=== PATIENT | male | born 1955 | race Caucasian/White ===

== ENCOUNTER 2020-02-28 09:36 | Observation (INO) | payer MEDICARE ==
[2020-02-28] MEDS ORDERED: Morphine 4 MG/ML VIAL ONE ×3 (10:10→14:55)
[2020-02-28] MEDS ORDERED: Ondansetron PF 4 MG/2 ML Vial ONE ×2 (11:22→15:41)
--- NOTE | 2020-02-28 11:31 | RAD ---
Exam: XR Ankle Lt 2 View HISTORY: Trauma left lower extremity. Fractures. COMPARISON: Views of the left tibia and fibula. FINDINGS: Incomplete visualization of fractures involving the middle one third diaphysis of the tibia and fibula are seen. Fracture involving the medial malleolus extending into the tibiotalar joint is also again seen and noted on prior views of the tibia and fibula. No dislocation is seen at the le tyrese of the ankle. No additional fracture is seen. Splint material overlies the lower extremity. IMPRESSION: Mildly and displaced fractures involving the diaphysis of the left tibia and fibula as well as a nondisplaced fracture involving the medial malleolus with the fracture extending medially into the tibiotalar joint.
--- NOTE | 2020-02-28 11:32 | RAD ---
EXAM: CHEST ONE VIEW HISTORY: Preoperative evaluation. COMPARISON: None FINDINGS: Postoperative changes related to CABG are noted. Cardiac silhouette and pulmonary vasculature are wit hin normal limits for the portable technique of the study. The lungs are clear. Vascular calcifications are seen in the thoracic aorta. Osseous structures have a normal appearance. IMPRESSION: No acute cardiopulmonary process.
[2020-02-28 11:37] LABS: Hemoglobin 14.8 g/dL (14.0-18.0); Mean Corpuscular HGB CONC 33.1 g/dL (32.0-36.0); Mean Corpuscular Hemoglobin 35.8 pg (27.0-31.0); Mean Platelet Volume 8.3 fL (7.4-10.4); Platelet Count 213 thou/uL (130-400); RBC Distribution Width 11.5 % (11.5-14.5); Red Blood Cell (RBC) Count 4.14 mill/uL (4.70-6.10); White Blood Cell (WBC) Count 11.3 thou/uL (4.8-10.8)
[2020-02-28 11:43] LABS: PTT 30.5 sec (22.9-36.1); Prothrombin Time 12.7 sec (12.0-14.7)
--- NOTE | 2020-02-28 11:43 | RAD ---
LEFT LEG 2 VIEWS: Date: 02/28/2020 HISTORY: Fall, left leg pain. FINDINGS/IMPRESSION: There are mildly displaced fractures of the distal shafts of the left tibia and fibula, and nondispla geraldine fractures of the proximal shafts of the tibia and fibula, and a nondisplaced fracture involving t he medial malleolus. POS: OFF
[2020-02-28 11:50] LABS: #Eosinphils 0.1 thou/uL (0.0-0.7); #Lymphocytes 0.9 thou/uL (1.20-3.40); #Monocytes 0.4 thou/uL (0.11-0.59); #Neutrophils 9.9 thou/uL (1.40-6.50); %Basophils 0.1 % (0.0-1.0); %Eosinophils 0.8 % (0.0-10.0); %Lymphocytes 8.2 % (21.0-51.0); %Monocytes 3.6 % (0.0-10.0); %Neutrophils 87.4 % (42.0-75.0); Large Platelets SLIGHT; MDiff Complete? YES; Macrocytosis MODERATE=16-30 cells (100X) (0-5/hpf); Platelet Morphology Comment Appears Adequate
[2020-02-28 11:52] LABS: ALT (SGPT) 25 U/L (8-55); AST (SGOT) 22 U/L (5-34); Albumin 4.4 g/dL (3.4-4.8); Alkaline Phosphatase 65 U/L (40-110); Anion Gap 11 mmol/L (10-20); BUN (Urea Nitrogen) 20 mg/dL (8.4-25.7); Bilirubin, Total 0.5 mg/dL (0.2-1.2); Calc. Creatinine Clearance 0 mL/min (70-130); Calcium 9.1 mg/dL (7.8-10.44); Carbon Dioxide 25 mmol/L (23-31); Chloride 107 mmol/L (98-107); Estimated GFR-MDRD 72; Globulin 2.6 g/dL (2.4-3.5); Glucose 133 mg/dL (80-115); Potassium 4.1 mmol/L (3.5-5.1); Sodium 139 mmol/L (136-145)
[2020-02-28] MEDS ORDERED: Fentanyl 250 MCG/5 ML VIAL ONE (12:04)
[2020-02-28] MEDS ORDERED: Midazolam HCl 2 mg/2 ml Vial ONE (12:04)
--- NOTE | 2020-02-28 12:44 | HP ---
REQUESTING PHYSICIAN: Josh Benites MD ATTENDING SURGEON: Johs Hwang MD CONSULTATIONS: Orthopedics, Dr. Guallpa. HISTORY OF PRESENT ILLNESS: The patient is a 64-year-old man, who was working with his tractor that had a log on the forks that he was attempting to cut. Unfortunately, the tension on the log once it was cut, caused the snapped forward and struck the patient. In his left lower extremity, he had immediate pain and deformity, but was able to summon help and was brought to the emergency department by ground EMS. In the emergency department, he underwent evaluation and examination and was noted to have a comminuted closed tibial and fibular fracture. The patient denied any loss of consciousness. We were asked to evaluate the patient for admission and obtain Orthopedic consultation. ALLERGIES: NONE. CURRENT MEDICATIONS: 1. 81 mg aspirin. 2. Atorvastatin. 3. . 4. Plavix. 5. Ezetimibe. 6. CoQ10. 7. Acyclovir. PAST MEDICAL HISTORY: Myocardial infarction. PAST SURGICAL HISTORY: Four-vessel coronary artery bypass graft. SOCIAL HISTORY: The patient smoked tobacco greater than 20 years ago. Denies drug use. Drinks 2 beers every day. He lives at home with his spouse. REVIEW OF SYSTEMS: Ten-point review of systems is negative as otherwise stated. PHYSICAL EXAMINATION: VITAL SIGNS: Blood pressure 125/71, heart rate 61, respirations 15, oxygen saturation 98% on room air, and temperature 97.9. GENERAL: The patient is resting comfortably in bed. He is awake, alert, and oriented x3. [place] Coma Scale is 15. HEENT: Head is normocephalic and atraumatic. Eyes, extraocular motion intact. PERRLA bilaterally. Ears are atraumatic without discharge. Nose is atraumatic without discharge. Oropharynx is clear. NECK: Nontender. Trachea is midline with no JVD. CHEST: Clear to auscultation with good inspiratory and expiratory effort. HEART: Regular rate and rhythm. ABDOMEN: Soft, flat, nontender with active bowel sounds. PELVIS: Stable. EXTREMITIES: Neurovascularly intact x4. Left lower extremity is immobilized in a long posterior splint. The available compartments are soft, and the patient is able to move his digits without discomfort showing no signs of compartment syndrome. BACK: Atraumatic and nontender. LABORATORY FINDINGS: White blood cell count 11.3, hemoglobin 14.8, hematocrit 44.7. INR 1.0. Chemistries are pending. RADIOGRAPHIC FINDINGS: AP chest shows no acute cardiopulmonary process. Views of the left tibia and fibula showed mildly displaced fractures of the distal shaft of the left tibia and fibula and there are nondisplaced fractures of proximal shaft of the tibia and fibula. In addition, there is a nondisplaced fracture involving the medial malleolus. Views of the left ankle demonstrates the above fractures. ASSESSMENT: 1. Status post blunt trauma to left lower extremity. 2. Comminuted fractures of the left tibia and fibula. 3. Acute pain secondary to above. 4. History of coronary artery disease with 4-vessel coronary artery bypass graft. PLAN: Plan will be to keep the patient n.p.o. His last meal was 0700 hours this morning. This was discussed with Dr. Guallpa in addition to his Plavix use. The plan is for him to go to the operating room this afternoon. We will do pain control, pulmonary toilet, gastritis, mechanical VTE prophylaxis. Postoperatively, we will resume his diet, transition him to oral pain medications and begin working with physical and occupational therapy. Due to the patient's health and mobility, he will likely be able to be discharged home tomorrow. The evaluation, examination, laboratory, and radiographic findings were discussed with Dr. Hwang prior to this dictation. Job ID: [id number]
[2020-02-28] MEDS ORDERED: CEFAZOLIN 2 GM in Premix Bag 1 BAG IVPB SCH (12:45)
[2020-02-28] MEDS ORDERED: PACU-Morphine 4MG/ML VIAL SLOW IVP PRN (14:42)
[2020-02-28] MEDS ORDERED: Promethazine HCl 25 MG/ML VIAL SLOW IVP PRN (14:42)
[2020-02-28] MEDS ORDERED: Promethazine HCl 25 MG/ML VIAL IM PRN (14:42)
[2020-02-28] MEDS ORDERED: Ondansetron HCl/PF 4 MG/2 ML Vial IVP PRN (14:42)
[2020-02-28] MEDS ORDERED: HYDROmorphone 2 MG/ML VIAL SLOW IVP PRN (14:42)
[2020-02-28] MEDS ORDERED: hydrALAZINE 20 MG/ML VIAL SLOW IVP PRN (14:49)
[2020-02-28] MEDS ORDERED: Cyclobenzaprine 10 MG TAB PO PRN (14:49)
[2020-02-28] MEDS ORDERED: traMADol HCl 50 MG TAB PO PRN (14:49)
[2020-02-28] MEDS ORDERED: Dextrose 5% in Water 1,000 ML IV PRN (14:49)
[2020-02-28] MEDS ORDERED: Morphine 2 MG/ML SYRINGE SLOW IVP PRN (14:49)
[2020-02-28] MEDS ORDERED: Ondansetron PF 4 MG/2 ML Vial IVP PRN (14:49)
[2020-02-28] MEDS ORDERED: Ondansetron ODT 4 MG TAB PO PRN (14:49)
[2020-02-28] MEDS ORDERED: Dextrose 50% Abboject 50 ML SYRINGE SLOW IVP PRN (14:49)
[2020-02-28] MEDS ORDERED: Sodium Chloride 0.9% 1,000 ML IV SCH (14:49)
[2020-02-28] MEDS ORDERED: Morphine 4 MG/ML VIAL SLOW IVP PRN (14:49)
--- NOTE | 2020-02-28 15:05 | RAD ---
LEFT LEG TWO VIEWS: History: Intraoperative images FINDINGS: There has been reduction and internal fixation of the fracture of the tibial shaft and the medial mal leolus with placement of an intramedullary james and interlocking screw and two screws through the medi al malleolus since the previous exam of 9:51 a.m. of the same date. IMPRESSION: As above. POS: OFF
--- NOTE | 2020-02-28 15:17 | OP ---
DATE OF PROCEDURE: 02/28/2020 OPERATION PERFORMED: 1. Open reduction and internal fixation of left medial malleolus fracture. 2. Intramedullary nail fixation of left segmental tibia fracture. PREOPERATIVE DIAGNOSES: 1. Left segmental tibia fracture. 2. Left medial malleolus fracture. POSTOPERATIVE DIAGNOSES: 1. Left segmental tibia fracture. 2. Left medial malleolus fracture. COMPLICATIONS: None. ESTIMATED BLOOD LOSS: 200 mL. HIGHBALLER: Jermaine Sofia PA-C. IMPLANTS: Synthes 360-mm tibial nail with Crosslock screws and 4.0 cancellous screws. INDICATIONS: Mr. Ryder is a 64-year-old male who was injured cutting a tree today. He fractured his tibia and fibula. He was indicated for the above procedures to restore anatomic alignment and promote healing. Risks have been reviewed in detail. He elected to proceed with the operation. DESCRIPTION OF PROCEDURE: Mr. Ryder was identified in the preoperative holding area. His correct extremity was marked. He was carried to the operating room. He was positioned supine. General anesthesia was induced. A multidisciplinary time-out was performed. The left lower extremity was prepped and draped in sterile fashion. We began the procedure with a small incision over the medial malleolus. We percutaneously placed 2 partially-threaded 4.0 screws across the medial malleolar fracture. This compressed the fracture and held the fracture in appropriate position. The screws were seated under intraoperative x-ray. At this point, we moved to the tibia. We made a small incision over the proximal knee. We dissected down through the subcutaneous tissues and made a medial parapatellar arthrotomy. At this point, we inserted a guidewire at the tibial plateau. We inserted the guidewire under intraoperative x-ray. Next, we over-reamed the guidewire. We then placed our ball-tipped guidewire in the canal across the fracture site. We seated this in the centered position of the ankle. Next, we proceeded to ream over the guidewire. We reamed up to a size 10. We then placed a 9-mm tibial nail. We placed 2 proximal Crosslock screws and 2 distal Crosslock screws. At this point, we took final x-ray images. We thoroughly irrigated with copious lavage. After wounds were closed, we placed a splint. The patient was taken to recovery room in good condition. Job ID: [id number]
--- NOTE | 2020-02-28 15:20 | CON ---
DATE OF CONSULTATION: 02/28/2020 CHIEF COMPLAINT: Left tibia and leg pain. HISTORY OF PRESENT ILLNESS: Mr. 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 He was using a chain saw, cutting down, falling trees. One tree must have been under tension. As he cut this, it snapped and struck his left leg. He had immediate pain. He was unable to ambulate. He was taken to the emergency department. X-rays determined a left segmental tibia fracture as well as ankle fracture. He has been splinted. He has been given pain medication. He is resting comfortably. PAST MEDICAL HISTORY: Coronary artery disease. PAST SURGICAL HISTORY: Coronary artery bypass graft 2 years ago, on Plavix. ALLERGIES: NO KNOWN DRUG ALLERGIES. REVIEW OF SYSTEMS: Positive for left leg pain. Otherwise, negative 10-point review of systems. FAMILY MEDICAL HISTORY: Noncontributory. SOCIAL HISTORY: The patient denies tobacco, alcohol, or drug use. IMAGING STUDIES: X-rays of the left tibia demonstrate a segmental tibia fracture. There is a transverse proximal fracture. There is also a displaced midshaft tibial fracture with fibular fracture. There is a medial malleolus fracture as well. PHYSICAL EXAMINATION: VITAL SIGNS: Stable. Afebrile. GENERAL: Alert and oriented, in no apparent distress. HEENT: Normocephalic and atraumatic. RESPIRATORY: Breathing comfortably. ABDOMEN: Soft, nontender, and nondistended. MUSCULOSKELETAL: The left lower extremity has a splint. He is able to flex and extend the foot and ankle. He has minimal pain with toe motion. Sensation intact in the distal aspect of the foot. Warm and well perfused. IMPRESSION: Segmental left tibia and fibular fracture with ankle fracture. PLAN: The patient will need to go to the operating room. We will plan for open reduction and internal fixation of the left medial malleolus. We will then proceed with intramedullary nail of the left tibia. The goal is to restore anatomic alignment and promote healing. Risks have been reviewed. He wants to proceed with the operation. He will stay in the hospital overnight for antibiotics. He will need DVT prophylaxis. Job ID: [id number]
[2020-02-28] MEDS ORDERED: Ketorolac Tromethamine 30 MG/ML VIAL ONE (15:41)
[2020-02-28] MEDS ORDERED: PHENYLEPHRINE-NS 100 MCG/ML 10 ML SYRINGE ONE (15:41)
[2020-02-28] MEDS ORDERED: PROPOFOL 200 MG/20 ML VIAL ONE (15:41)
[2020-02-28] MEDS ORDERED: Dexamethasone 20 MG/5 ML VIAL ONE (15:41)
[2020-02-28] MEDS ORDERED: EPHEDRINE 25 MG/5 ML SYRINGE ONE (15:41)
[2020-02-28] MEDS ORDERED: Lidocaine 1% PF 5 ML VIAL ONE (15:41)
[2020-02-28] MEDS ORDERED: Glycopyrrolate 0.2 MG/ML 5 ML SYRINGE ONE (15:41)
[2020-02-28] MEDS: Acetaminophen 325 MG TAB PO SCH ×2 (15:45→19:59)
[2020-02-28 16:35] VITALS: BMI 24.3
[2020-02-28] MEDS: CEFAZOLIN 2 GM in Premix Bag 1 BAG IVPB SCH (19:59)
[2020-02-28] MEDS: Famotidine 20 MG TAB PO SCH (19:59)
[2020-02-29] MEDS: traMADol HCl 50 MG TAB PO PRN ×2 (01:22→08:37)
[2020-02-29] MEDS: Acetaminophen 325 MG TAB PO SCH ×2 (04:00→08:37)
[2020-02-29] MEDS: CEFAZOLIN 2 GM in Premix Bag 1 BAG IVPB SCH (04:00)
[2020-02-29 05:03] LABS: #Lymphocytes 0.6 thou/uL (1.20-3.40); #Monocytes 0.7 thou/uL (0.11-0.59); %Basophils 0.3 % (0.0-1.0); %Eosinophils 0.1 % (0.0-10.0); %Lymphocytes 5.6 % (21.0-51.0); %Monocytes 6.4 % (0.0-10.0); %Neutrophils 87.6 % (42.0-75.0); Hemoglobin 13.5 g/dL (14.0-18.0); Mean Corpuscular HGB CONC 33.1 g/dL (32.0-36.0); Mean Corpuscular Hemoglobin 36.4 pg (27.0-31.0); Mean Platelet Volume 8.4 fL (7.4-10.4); Platelet Count 189 thou/uL (130-400); RBC Distribution Width 11.5 % (11.5-14.5); Red Blood Cell (RBC) Count 3.72 mill/uL (4.70-6.10); White Blood Cell (WBC) Count 10.2 thou/uL (4.8-10.8)
[2020-02-29 05:23] LABS: Anion Gap 11 mmol/L (10-20); BUN (Urea Nitrogen) 17 mg/dL (8.4-25.7); Calc. Creatinine Clearance 76 mL/min (70-130); Calcium 8.5 mg/dL (7.8-10.44); Carbon Dioxide 24 mmol/L (23-31); Chloride 105 mmol/L (98-107); Estimated GFR-MDRD 70; Glucose 143 mg/dL (80-115); Potassium 4.7 mmol/L (3.5-5.1); Sodium 135 mmol/L (136-145)
[2020-02-29] MEDS: Famotidine 20 MG TAB PO SCH (08:36)
[2020-02-29] MEDS ORDERED: Clopidogrel Bisulfate 75 MG TAB PO SCH (09:00)
[2020-02-29 11:00] VITALS: BP 122/70; TEMP 97.9
--- NOTE | 2020-03-05 15:05 | EKG ---
Test Reason : Blood Pressure : / mmHG Vent. Rate : 059 BPM Atrial Rate : 059 BPM P-R Int : 166 ms QRS Dur : 096 ms QT Int : 420 ms P-R-T Axes : 000 -43 069 degrees QTc Int : 415 ms Sinus bradycardia Left axis deviation Anterior infarct , age undetermined Abnormal ECG Confirmed by GABRIELA BENITEZ, KARLEE ([id number]), health editor MARIETTA SAMUELS ([id number]) on 03/05/2020 3:04:52 PM Referred By: Confirmed By:KARLEE OCHOA MD
== END 2020-02-29 12:55 | disposition home or self-care (01) ==
LOC: ERS 09:36 → SURG A 12:30 → SDC 12:30 → SURG A 16:05
PROVIDERS: ADMIT Surgery; ATTEND Surgery
PROC: 0QSH06Z Reposition Left Tibia with Intramedullary Internal Fixation Device, Open Approach (ICD-10-PCS; principal; 2020-02-28)
PROC: 0QSH04Z Reposition Left Tibia with Internal Fixation Device, Open Approach (ICD-10-PCS; 2020-02-28)
DX: S82.252A Displaced comminuted fracture of shaft of left tibia, initial encounter for closed fracture (principal); S82.52XA Displaced fracture of medial malleolus of left tibia, initial encounter for closed fracture; S82.452A Displaced comminuted fracture of shaft of left fibula, initial encounter for closed fracture; S82.192A Other fracture of upper end of left tibia, initial encounter for closed fracture; S82.832A Other fracture of upper and lower end of left fibula, initial encounter for closed fracture; G89.11 Acute pain due to trauma; I25.10 Atherosclerotic heart disease of native coronary artery without angina pectoris; I10 Essential (primary) hypertension; E78.5 Hyperlipidemia, unspecified; I25.2 Old myocardial infarction; Z87.891 Personal history of nicotine dependence; Z79.02 Long term (current) use of antithrombotics/antiplatelets; Z79.82 Long term (current) use of aspirin; Z79.899 Other long term (current) drug therapy; Z95.1 Presence of aortocoronary bypass graft; W22.8XXA Striking against or struck by other objects, initial encounter; Y93.89 Activity, other specified
CPT/HCPCS: 27752; 27759; 27766; 71045; 73590; 73600; 76000; 76856; 80048; 80053; 85025 ×2; 85610; 85730; 93005; 96365; 96375; 96376; 97139 ×4; 99285; C1713 ×3; C1769; G0378 ×3; 36415; 96374; G0390; J0690; J1100; J1885; J2001; J2250; J2270; J2405; J2704; J3010